=== PATIENT | female | born 1950 | race Caucasian/White ===

== ENCOUNTER 2022-03-04 08:35 | Inpatient (IN) | payer MEDICARE, OTHER ==
[2022-03-04] MEDS ORDERED: Ondansetron 4 MG/2 ML SDV IVPUSH ONE (09:34)
[2022-03-04] MEDS ORDERED: Sodium Chloride 0.9% 10 ML Syringe FLUSH PRN (09:34)
[2022-03-04] MEDS ORDERED: HYDROmorphone 0.5 MG/0.5 ML Syringe IVPUSH ONE ×2 (09:34→13:55)
[2022-03-04] MEDS ORDERED: Sodium Chloride 0.9% 10 ML Syringe FLUSH ONE (10:09)
[2022-03-04 10:13] LABS: ESTIMATED GFR 68 mL/min (>60)
[2022-03-04] MEDS ORDERED: Sodium Chloride 0.9% 50 ML IV SCH (10:15)
[2022-03-04] MEDS ORDERED: Iopamidol 612 MG/ML 100 ML Bottle IV SCH (10:15)
[2022-03-04] MEDS ORDERED: Sodium Chloride 0.9% 1,000 ML IV SCH (10:15)
[2022-03-04] MEDS ORDERED: Piperacillin/Tazobactam 3.375 GM in Sodium Chloride 0.9% 50 ML IV ONE (10:40)
[2022-03-04] MEDS ORDERED: HYDROmorphone/Normal Saline 6 MG/30 ML PCA Vial IV PRN (12:08)
[2022-03-04] MEDS ORDERED: Ondansetron 4 MG/2 ML SDV ONE (12:15)
[2022-03-04] MEDS ORDERED: Propofol 200 MG/20 ML SDV ONE (12:15)
[2022-03-04] MEDS ORDERED: Succinylcholine 200 MG/10 ML MDV ONE (12:15)
[2022-03-04] MEDS ORDERED: Glycopyrrolate 0.2 MG/ML 5 ML MDV ONE (12:15)
[2022-03-04] MEDS ORDERED: Dexamethasone 4 MG/ML SDV ONE (12:15)
[2022-03-04] MEDS ORDERED: Neostigmine Methylsulfate 1 MG/ML 5 ML Syringe ONE (12:15)
[2022-03-04] MEDS ORDERED: Rocuronium 50 MG/5 ML Vial ONE (12:15)
[2022-03-04] MEDS ORDERED: fentaNYL 250 MCG/5 ML SDV ONE (12:17)
[2022-03-04] MEDS ORDERED: Ketamine 15 MG in Sodium Chloride 0.9% 19.85 ML IV SCH (13:00)
[2022-03-04] MEDS ORDERED: Naloxone 0.4 MG/ML SDV IV PRN (13:00)
[2022-03-04] MEDS ORDERED: Ketamine 500 MG/5 ML MDV IV SCH (13:00)
[2022-03-04] MEDS ORDERED: Ropivacaine 30 ML, dexAMETHasone 8 MG, EPINEPHrine 0.4 MG, Sodium Chloride 0.9% 47.6 ML NERVRT SCH ×4 (13:00)
[2022-03-04] MEDS ORDERED: Bupivacaine 0.5% 50 ML MDV ONE (14:56)
[2022-03-04] MEDS ORDERED: Lidocaine 1% with EPINEPHrine 1:100,000 50 ML MDV ONE (14:57)
[2022-03-04] MEDS ORDERED: ePHEDrine 50 MG/ML SDV ONE (16:51)
[2022-03-04] MEDS ORDERED: Sodium Chloride 0.9% 10 ML ONE ×2 (16:51→17:23)
[2022-03-04] MEDS ORDERED: Piperacillin/Tazobactam/Dext 3.375 GM in Premix Bag 1 BAG IV ONE (17:00)
[2022-03-04] MEDS ORDERED: Meropenem 500 MG SDV ONE ×2 (17:06→17:23)
[2022-03-04] MEDS ORDERED: Lactated Ringers 1,000 ML ONE (17:08)
[2022-03-04] MEDS ORDERED: hydrOXYzine HCL 100 MG/2 ML SDV IM PRN (19:05)
[2022-03-04] MEDS ORDERED: Ondansetron 4 MG/2 ML SDV IVPUSH PRN (19:07)
[2022-03-04] MEDS ORDERED: Pantoprazole 40 MG Vial IV SCH (19:15)
[2022-03-04] MEDS: Dextrose 5%-Lactated Ringers 1,000 ML IV SCH (20:19)
[2022-03-04] MEDS: Meropenem 500 MG in Sodium Chloride 0.9% 50 ML IV SCH (22:16)
[2022-03-05] MEDS: Dextrose 5%-Lactated Ringers 1,000 ML IV SCH ×2 (03:00→11:24)
[2022-03-05] MEDS: Meropenem 500 MG in Sodium Chloride 0.9% 50 ML IV SCH ×4 (04:54→22:34)
[2022-03-05] MEDS: Raloxifene 60 MG Tab PO SCH (09:31)
[2022-03-05] MEDS: Docusate Sodium 100 MG Cap PO SCH ×2 (09:31→20:41)
[2022-03-05] MEDS: Bisacodyl 5 MG Tab PO SCH ×2 (09:31→20:41)
[2022-03-05] MEDS: Losartan 50 MG Tab PO SCH (09:33)
[2022-03-05] MEDS: Atenolol 25 MG Tab PO SCH (09:34)
[2022-03-05] MEDS ORDERED: Pantoprazole 40 MG Vial IV SCH (21:00)
[2022-03-06] MEDS: Dextrose 5%-Lactated Ringers 1,000 ML IV SCH (00:44)
[2022-03-06] MEDS: Meropenem 500 MG in Sodium Chloride 0.9% 50 ML IV SCH ×4 (04:49→23:46)
[2022-03-06] MEDS: Docusate Sodium 100 MG Cap PO SCH ×2 (08:16→20:53)
[2022-03-06] MEDS: Bisacodyl 5 MG Tab PO SCH ×2 (08:19→20:53)
[2022-03-06] MEDS: Raloxifene 60 MG Tab PO SCH (08:20)
[2022-03-06] MEDS: Losartan 50 MG Tab PO SCH (08:26)
[2022-03-06] MEDS: Atenolol 25 MG Tab PO SCH (08:27)
[2022-03-06] MEDS: HYDROmorphone 2 MG Tab PO PRN ×3 (10:44→23:47)
[2022-03-06] MEDS: Acetaminophen 500 MG Tab PO SCH (20:53)
[2022-03-06] MEDS ORDERED: Pantoprazole 40 MG Tab.CR PO SCH (21:00)
[2022-03-06] MEDS: Ibuprofen 400 MG Tab PO SCH (23:47)
[2022-03-07] MEDS: Acetaminophen 500 MG Tab PO SCH ×2 (03:00→08:13)
[2022-03-07] MEDS: Ibuprofen 400 MG Tab PO SCH ×2 (03:57→06:06)
[2022-03-07] MEDS: Meropenem 500 MG in Sodium Chloride 0.9% 50 ML IV SCH (04:32)
[2022-03-07] MEDS ORDERED: Amoxicillin/Clavulanate K 875-125 MG Tab PO SCH (08:00)
[2022-03-07] MEDS: Losartan 50 MG Tab PO SCH (08:13)
[2022-03-07] MEDS: Bisacodyl 5 MG Tab PO SCH (08:14)
[2022-03-07] MEDS: Raloxifene 60 MG Tab PO SCH (08:14)
[2022-03-07] MEDS: Docusate Sodium 100 MG Cap PO SCH (08:14)
[2022-03-07] MEDS: Atenolol 25 MG Tab PO SCH (08:14)
== END 2022-03-07 11:45 | disposition home or self-care (01) | DRG 340 ==
LOC: JP.ED 08:35 → JP.SDS 12:15 → JP.ICU 14:36
PROVIDERS: ADMIT Surgery; ATTEND Physician Assistant Medical
PROC: 0DTJ4ZZ Resection of Appendix, Percutaneous Endoscopic Approach (ICD-10-PCS; principal; 2022-03-04)
PROC: 0D9J4ZZ Drainage of Appendix, Percutaneous Endoscopic Approach (ICD-10-PCS; 2022-03-04)
DX: K35.21 Acute appendicitis with generalized peritonitis, with abscess (principal); Z90.49 Acquired absence of other specified parts of digestive tract; K63.89 Other specified diseases of intestine; Z79.899 Other long term (current) drug therapy; I10 Essential (primary) hypertension; Z85.3 Personal history of malignant neoplasm of breast; Z86.19 Personal history of other infectious and parasitic diseases; Z20.822 Contact with and (suspected) exposure to COVID-19; Z90.10 Acquired absence of unspecified breast and nipple; K57.90 Diverticulosis of intestine, part unspecified, without perforation or abscess without bleeding
CPT/HCPCS: 36415; 74177 ×2; 80053; 83605; 85025; 86140; 93005; 96361; 96365; 96367; 96375; 96376; 99285; J0330; J1100; J1170 ×2; J2405 ×2; J2543; J2704; J2710; J3010; J3490 ×5; J7030; Q9967; U0002; 87070; 87075; 87077; 87186; 87205; 88304; A9270-GY; C9113; J0171; J2185; J2795; J7120; J7121